=== PATIENT | female | born 1990 | race African-American/Black ===

== ENCOUNTER 2021-04-13 23:20 | Emergency (ER) | payer BC, SELFPAY ==
--- NOTE | ~2021-04-13 | CT_ITS ---
EXAMINATION: CT HEAD WITHOUT CONTRAST CT CERVICAL SPINE WITHOUT CONTRAST CLINICAL INFORMATION: Seizure, fall hitting head, headache. COMPARISON: None. TECHNIQUE: Contiguous axial imaging was performed from the skull base to vertex without intravenous administration of contrast. Contiguous axial imaging was performed from the upper chest through the skull base without intravenous administration of contrast. Coronal and sagittal reformats were obtained at the acquisition workstation. This CT examination was performed using dose optimization techniques as appropriate, variously including the following: *Automated exposure control *Adjustment of mA and/or kV according to patient size (this includes techniques or standardized protocols for targeted exams where dose is matched to indication/reason for exam; i.e. extremities or head) *Use of iterative reconstruction technique DLP: 657 mGy-cm FINDINGS: Head: There is no evidence of acute intracranial hemorrhage or edematous territorial infarction. There is no abnormal attenuation within the brain parenchyma. Daugherty-white matter differentiation is preserved. The ventricles are normal in size and configuration. No evidence for obstructive hydrocephalus. No abnormal mass effect or midline shift. No extra-axial fluid collections. No acute soft tissue or osseous abnormalities. Partial opacification of some of the ethmoidal air cells. Mild mucosal thickening of the maxillary sinuses. Otherwise, paranasal sinuses and mastoids are clear. Cervical Spine: The atlantooccipital and atlantoaxial articulations remain well aligned. Straightening of the normal cervical lordosis. Otherwise, there is anatomic alignment of the vertebral bodies and posterior elements. No evidence of acute fracture or subluxation. The vertebral body heights and disc spaces are maintained. There is no prevertebral soft tissue swelling. The thyroid gland and remaining cervical soft tissues are normal in appearance. CT/CT cervical spine wo con IMPRESSION: No acute intracranial pathology. No acute cervical fractures or subluxation.
--- NOTE | ~2021-04-13 | XR_ITS ---
EXAMINATION: XR SHOULDER, LEFT CLINICAL INFORMATION: Fall, left shoulder pain. COMPARISON: None. TECHNIQUE: Three views of the left shoulder. FINDINGS: The bones and soft tissues are normal. No fracture. Glenohumeral and acromioclavicular alignment is anatomic with normal joint space. No abnormal soft tissue calcifications. XR/XR shoulder LT min 2V IMPRESSION: Normal left shoulder.
[2021-04-13 23:20] VITALS: BP 109/48; BP 98/52; PULSE 95; PULSE 97; RESP 16; TEMP 36.9; O2SAT 98; O2SAT 99; BMI 45.9
[2021-04-13 23:29] VITALS: PULSE 95; RESP 16; O2SAT 100
--- NOTE | 2021-04-13 23:29 | ECG_ITS ---
Test Reason : ? SEIZURE Blood Pressure : / mmHG Vent. Rate : 092 BPM Atrial Rate : 092 BPM P-R Int : 174 ms QRS Dur : 086 ms QT Int : 350 ms P-R-T Axes : 057 036 033 degrees QTc Int : 432 ms Normal sinus rhythm Normal ECG No previous ECGs available Referred By: Arvin Beaulieu Electronically Signed By:ABDOUL KRISHNAN MD
--- NOTE | 2021-04-13 23:32 | ED_ITS ---
HPI - Seizure General Chief Complaint: Seizure Stated Complaint: seizure Time Seen by Provider: 04/13/21 23:22 Source: patient Mode of arrival: EMS Limitations: no limitations History of Present Illness HPI Narrative: 30-year-old female past medical history significant for seizure disorder on Keppra 750 b.i.d via EMS status post seizure just prior to her arrival. 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 Patient does not remember what happened. She is complaining of left-sided shoulder pain that radiates into the left side of her neck. Per EMS, patient was found on the ground, it appeared as though she fell forward, the table was pushed forward, and there was broken glass on the floor. They state that she was postictal on the ambulance, and her only complaint was my left shoulder hurts and im nauseaous. Patient states she is unsure if she took her Keppra this morning. She denies drug use, alcohol, tobacco use. Patient states that this is the 4th seizure of her life, and her seizures started in 2019. She states she has a neurologist at [facility]. She was not incontinent of stool, or urine. And she reports no mouth pain,or tongue pain/trauma. She denies chest pain, shortness of breath, fevers, chills, nausea, headache, changes in vision, confusion. MD complaint: seizure Onset (ago): unknown Description of Episode: loss of consciousness and post-event confusion Witnessed: No Trauma: Yes Seizure History: Yes Place: Hotel Possible Precipitating Event: none and stress Associated symptoms: denies other symptoms Treatments prior to arrival: none Related Data Allergies Allergy/AdvReac Type Severity Reaction Status Date / Time Unable to Assess Allergy Unverified 04/13/21 23:27 Review of Systems 2 Review of Systems: Constitutional : No Weight loss, No Fever, No Chills, No Fatigue, No Malaise ENT/Mouth : No sore throat, No Rhinorrhea Eyes: No Eye Pain, No Swelling, No Redness Cardiovascular : No Chest Pain, No SOB, No Dyspnea on Exertion, No Orthopnea, No Edema, No Palpitations Respiratory : No Cough, No Sputum, No Wheezing Gastrointestinal : + Nausea, No Vomiting, No Diarrhea, No Constipation, No abdominal Pain, No Hematochezia, No Melena Genitourinary : No Dysuria, No Urinary Frequency, No Hematuria, Musculoskeletal : + joint pain, No Myalgias, No Joint Swelling Skin : No Skin Lesions, No rash Neuro : No Weakness, No Numbness, No Dizziness, No Headache All other systems reviewed and are negative PMFSH Past Medical History Attestation statement: The following information was validated with the patient. Source: old records reviewed and nursing notes reviewed Social History Social History Advance Directives: No Advance Directives Information Provided: No Patient : No Physical Exam Vital Signs: Vital Signs: Last Vital Signs Temp 98.5 F 04/13/21 23:20 Pulse 97 04/14/21 00:08 Resp 16 04/14/21 00:08 BP 107/62 04/14/21 00:08 Pulse Ox 99 04/14/21 00:08 Body Mass Index 45.9 Appearance: Alert. Oriented X3. No acute distress. ? No accessory muscle use. Head: Normal external exam. Normocephalic. Atraumatic. No step-offs or deformities. Eyes: PERRLA. EOMI. Conjunctiva and sclera normal. Eyelids normal. ? ENT: Pharynx normal. Uvula midline. Moist mucous membranes. ? No trismus noted.? No drooling noted.? No muffled voice noted. Neck: ?Full range of motion, + slight pain with flexion and extension of neck, no pain to palpation or overlying skin changes. No C spine tenderness CVS: ?Heart regular rate and rhythm no murmurs and rubs Respiratory: ?Breath sounds are clear to auscultation bilaterally. No wheezing or stridor.? No accessory muscle use noted. Abdomen: ?Soft nontender no rebound or guarding positive bowel sounds Skin: Skin warm and dry.? Normal skin color.? Normal skin turgor. No rashes/lesions/lacerations noted. Extremities: No lower extremity edema. ? Extremities exhibit normal range of motion + Painful full range of motion to left shoulder.? Extremities nontender. Upper extremities 2+ radial pulses equal and bilateral Neuro: Oriented X 3.? No motor deficit.? No sensory deficit.? Reflexes normal Course Course Course Narrative: This case was discussed with who agrees with the treatment, and discharge plan. Reevaluation(s) Reevaluation #1: Laboratory studies show no signs of infection, or anemia. No acute electrolyte abnormalities. ETOH negative. CT of head/ brain and cervical spine shows no acute intracranial pathology, and no acute cervical fractures or subluxations. Xray of left shoulder is normal. 2 mg of attivan will be given at this time. Patient clarified her home medication is kepra not valproate, she requested a keppra level be drawn for her to share with her Neurologist Joaquina Farias out of [facility]. Patient states left shoulder is feeling better after administration of Toradol. Patient states that she feels safe to be discharged, she states that she has a feature on her Apple watch, that can detect when she is having a seizure, and will call emergency personnel as needed. Patient's friend is at the bedside, patient has a safe ride home. Patient is safe for discharge home, with Neurology and PCP follow-up. She has been advised to return to the emergency department with new or worsening symptoms, or if she has another seizure. Time: 00:42 MDM - Seizure MDM Narrative Medical decision making narrative: 2327 30-year-old female past medical history significant for seizure disorder, currently controlled with Keppra 750 mg b.i.d. daily presents to the emergency department via EMS status post seizure with complaints of left-sided shoulder pain that radiates into the left side of the neck, and nausea. 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 EMS was called by her friend, who noted she was having a seizure on the phone. When EMS found the patient, it appeared as though she fell forward off of her chair, and hit a kitchen table, there was shattered glass on the floor, they found the patient on the ground. Patient denies drugs, and alcohol use. Patient is unsure if she took her Keppra this morning. No urinary incontinence, or bowel incontinence, no trauma to the mouth, no chest pain, shortness of breath, confusion, or weakness. Upon physical examination patient reports pain with range of motion to the left shoulder, she also reports pain with flexion and extension of the neck. No focal neuro deficits. 5/5 strength upper and lower extremities, normal hand waxer tender. Patient is alert and oriented x3 and answering questions appropriately. Patient ambulates with a steady gait. Head is normocephalic, atraumatic, no step-offs or deformities. Pupils equal round reactive to light bilaterally. Lungs are clear to auscultation bilaterally. S1 and S2 are appreciated free of murmurs. Abdomen is soft nontender nondistended. No distracting injuries, or evident trauma noted. Plan at this time is to obtain basic labs, drug screen, ethanol, valproate level, CT of cervical spine, CT of head and brain, x-ray of left shoulder, EKG. Patient will be given fluids, and Zofran. Medical Records Attestation: I reviewed the patient's medical records. Lab Data Attestation: I reviewed the patient's lab results. Result diagrams: 04/13/21 23:40 04/13/21 23:40 Labs: Lab Results 04/13/21 04/13/21 04/13/21 Range/Units 23:40 23:40 23:40 WBC 7.3 (4.8-10.8) X10*3/uL RBC 4.50 (4.20-5.50) X10*6/uL Hgb 12.5 (12.0-16.0) g/dl Hct 38.0 (37.0-47.0) % MCV 84.4 (80.0-98.0) fL MCH 27.8 (27.0-33.0) pg MCHC 32.9 (31.0-35.0) g/dl RDW 12.7 (11.0-16.0) % Plt Count 321 (160-400) X10*3/uL MPV 8.8 L (9.4-12.3) fL Immature Gran % (Auto) 0.4 (0.0-0.4) % Neut % (Auto) 48.1 (45-73) % Lymph % (Auto) 42.2 H (20-40) % [place] % (Auto) 8.2 (2-11) % Eos % (Auto) 1.0 (0-4) % Baso % (Auto) 0.1 (0-2) % Lymph # (Auto) 3.1 (1.2-4.9) X10*3/uL [place] # (Auto) 0.6 (0.1-1.2) X10*3/uL Eos # (Auto) 0.1 (0.0-0.4) X10*3/uL Baso # (Auto) 0.0 (0.0-0.2) X10*3/uL Abs Immat Gran (auto) 0.03 (0.00-0.03) X10*3/uL Absolute Neuts (auto) 3.5 (2.0-8.3) x10*3/uL Absolute Nucleated RBC 0.000 (0.0-0.012) X10*3/uL Nucleated RBC % (auto) 0.0 (0.0-0.2) /100WBC Sodium 137 (135-145) mmol/L Potassium 4.0 (3.3-5.1) mmol/L Chloride 104 (96-108) mmol/L Carbon Dioxide 23 (22-29) mmol/L Anion Gap 14 (12-20) BUN 18 H (9-16) mg/dL Creatinine 0.89 (0.5-1.4) mg/dL Estim Creat Clear Calc 145.9 Estimated GFR > 60 Random Glucose 128 H (60-115) mg/dL Calcium 9.1 (8.4-10.2) mg/dL Total Bilirubin 0.2 (0.0-1.0) mg/dL AST 14 (5-31) U/L ALT 15 (0-31) U/L Alkaline Phosphatase 76 (39-117) U/L Total Protein 6.4 L (6.5-8.0) g/dL Albumin 4.3 (3.5-5.0) g/dL Valproic Acid < 2.0 L (50.0-100.0) mcg/mL Ethyl Alcohol < 10 mg/dL Imaging Data Head/brain, cervical spine CT: Attestation: I personally reviewed and interpreted this imaging study as follows: Radiologist's impression: CT/CT head/brain wo con IMPRESSION: No acute intracranial pathology. ? No acute cervical fractures or subluxation. X-ray left shoulder: Attestation: I personally reviewed and interpreted this imaging study as follows: Radiologist's impression: XR/XR shoulder LT min 2V IMPRESSION: Normal left shoulder. ECG Data Attestation: I personally reviewed and interpreted this ECG as follows: ECG interpretation date: 04/13/21 ECG interpretation time: 23:33 Prior ECG tracings: not available for review Interpretation: Ventricular rate of 92, MI normal QRS normal QT/QTC normal. No ST elevations, or T-wave inversions. EKG shows normal sinus rhythm No acute ischemia. No previous EKG to compare with. Critical Care Time Critical Care Time Critical Care Time: No Discharge Plan Discharge Clinical Impression: Generalized seizure, Left shoulder strain Patient Disposition: Home, Self-Care Instructions: Shoulder Sprain (ED), Epilepsy in Older Adults (ED) Additional Instructions: Take your medications as prescribed by your home providers Follow-up with your primary care provider this week and with your neurologist. Call medical records to obtain your Keppra level or check the online portal for results Return to the emergency department with new or worsening symptoms. In case of emergency call 911 Stand Alone Forms: Work/School Release
[2021-04-13] MEDS: ondansetron HCL 4 MG/2 ML VIAL IVPUSH (23:42)
[2021-04-13 23:45] LABS: MANUAL DIFF FLAG NO
[2021-04-13 23:46] LABS: Basophils Percent Auto 0.1 % (0-2); Eosinophils Absolute Auto 0.1 X10*3/uL (0.0-0.4); Hemoglobin 12.5 g/dl (12.0-16.0); Imm Gran Abs Auto 0.03 X10*3/uL (0.00-0.03); Imm Gran Pct Auto 0.4 % (0.0-0.4); Lymphocytes Absolute Auto 3.1 X10*3/uL (1.2-4.9); Lymphocytes Percent Auto 42.2 % (20-40); Mean Corpuscular HGB Conc 32.9 g/dl (31.0-35.0); Mean Corpuscular Hemoglobin 27.8 pg (27.0-33.0); Mean Corpuscular Volume 84.4 fL (80.0-98.0); Mean Platelet Volume 8.8 fL (9.4-12.3); Monocytes Absolute Auto 0.6 X10*3/uL (0.1-1.2); Monocytes Percent Auto 8.2 % (2-11); Neutrophils Absolute Auto 3.5 x10*3/uL (2.0-8.3); Neutrophils Percent Auto 48.1 % (45-73); Platelet Count 321 X10*3/uL (160-400); Red Cell Distribution Width 12.7 % (11.0-16.0); White Blood Count 7.3 X10*3/uL (4.8-10.8)
--- NOTE | 2021-04-13 23:54 | PC.NURSE ---
PT OFF TO CT
[2021-04-14] LABS: Ethanol < 10 mg/dL
--- NOTE | 2021-04-14 00:02 | PC.NURSE ---
PT TO XRAY FROM CT
[2021-04-14 00:04] LABS: Alanine Aminotransferase 15 U/L (0-31); Albumin Level 4.3 g/dL (3.5-5.0); Alkaline Phosphatase 76 U/L (39-117); Anion Gap 14 (12-20); Aspartate Amino Transferase 14 U/L (5-31); Bilirubin Total 0.2 mg/dL (0.0-1.0); Blood Urea Nitrogen 18 mg/dL (9-16); Calcium 9.1 mg/dL (8.4-10.2); Carbon Dioxide 23 mmol/L (22-29); Chloride 104 mmol/L (96-108); Creatinine Clr Calc Pharmacy 145.9; Estimated Glomerular Filt Rate > 60; Glucose Random 128 mg/dL (60-115); Sodium 137 mmol/L (135-145); Total Protein 6.4 g/dL (6.5-8.0)
[2021-04-14] MEDS: 0.9 % Sodium Chloride 1,000 ML 999 ML IV (00:06)
--- NOTE | 2021-04-14 00:07 | PC.NURSE ---
pt back from CT/XR pt back in ED 22, on monitor tech. pt has no questions/concerns at this time. no distress noted at this time. awaiting lab results
[2021-04-14 00:08] VITALS: BP 107/62; PULSE 97; RESP 16; O2SAT 99
[2021-04-14 00:10] LABS: Valproate < 2.0 mcg/mL (50.0-100.0)
[2021-04-14] MEDS: Ketorolac Tromethamine 15 MG/ML VIAL 30 MG IVPUSH (00:27)
[2021-04-14] MEDS: LORazepam 2 MG/ML VIAL IVPUSH (00:53)
[2021-04-14 01:10] VITALS: BP 100/50; PULSE 91; RESP 18; O2SAT 99
[2021-04-14 01:35] VITALS: RESP 16
[2021-04-18 11:42] LABS: Levetiracetam Keppra 8.3 mcg/mL (12.0-46.0)
== END 2021-04-14 02:17 | disposition home or self-care (01) ==
PROVIDERS: Physician Assistant; Emergency Provider Emergency Medicine Emergency Medical Services
DX: R56.9 Unspecified convulsions (principal); M25.512 Pain in left shoulder; M54.2 Cervicalgia; R51.9 Headache, unspecified; Z79.899 Other long term (current) drug therapy
CPT/HCPCS: 36415; 70450; 72125; 73030; 80053; 80164; 80177; 82077; 85025; 93005; 96361; 96374; 96375; 99284; J1885; J2060; J2405